=== PATIENT | female | born 1980 | race Caucasian/White ===

== ENCOUNTER 2022-08-20 17:24 | Emergency (ER) | payer OTHER, SELFPAY ==
[2022-08-20 18:08] VITALS: BP 118/89; PULSE 61; RESP 16; TEMP 37.4; O2SAT 100
--- NOTE | 2022-08-20 18:36 | ED.GENADULT ---
HPI - General Adult General Chief complaint: Wound/Laceration Stated complaint: Thumb Injury Time Seen by Provider: 08/20/22 18:36 Source: patient, RN notes reviewed and old records reviewed Mode of arrival: ambulatory Limitations: no limitations History of Present Illness HPI narrative: 42-year-old female presents to the [facility] with an infection around the left thumbnail. States that she got a sukhdev hook caught under the nail several days ago. Noticed that it got infected with an abscess Tried draining it herself. Now warm, swollen, tender to touch. Related Data Allergies Allergy/AdvReac Type Severity Reaction Status Date / Time No Known Allergies Allergy Mild Unverified 08/20/22 17:58 Review of Systems Review of Systems: All systems reviewed & are unremarkable except as noted in HPI and below Constitutional: Constitutional: Reports no additional constitutional complaints Eyes: Eyes: Reports no additional eye complaints ENT: Reports system reviewed and no additional complaints, except as documented Cardiovascular: Cardiovascular: Reports no additional cardiovascular complaints, Denies chest pain and Denies dyspnea Respiratory: Respiratory: Reports no additional respiratory complaints, Denies chest congestion, Denies cough and Denies dyspnea Gastrointestinal: Gastrointestinal: Reports no additional gastrointestinal complaints, Denies abdominal pain, Denies nausea and Denies vomiting Musculoskeletal: Musculoskeletal: Reports no additional musculoskeletal complaints Integumentary/Breasts: Skin/Breast: Reports as per HPI Neurologic: Reports system reviewed and no additional complaints, except as documented Psychiatric: Psychiatric: Reports no additional psychiatric complaints Allergic/Immunologic: Allergic/Immunologic: Reports no additional allergic/immunologic complaints PMFSH Comments At the time of my signature, I reviewed and agree with the nursing past medical, surgical, social, and family history. There is no relevant family history pertinent to the patient complaint. Exam Const: General: cooperative, healthy appearing, comfortable, no acute distress, well developed, alert and well nourished Nutritional Appearance: well nourished Orientation/consciousness: patient oriented x3 Limitations: no limitations HENMT: Head: normal to inspection Ears: hearing grossly normal bilaterally and external ears normal Face/Nose/Sinus: Normal external nose present, Normal nares present, Normal nasal mucous membranes and turbinates present and normal facial exam Face and sinus: normal facial exam Mouth: Yes lip normal and Yes moist mucous membranes Eyes: General: appearance normal, both eyes and all related structures Alignment and Position: alignment normal Periorbital: periorbital findings normal Pupils: Equal, round and reactive pupils present EOM: EOMs intact bilaterally Neck: Neck: normal visual inspection, full ROM, no lymphadenopathy and no meningeal signs Chest: Chest palpation & inspection: normal inspection of the chest Resp: Effort & Inspection: normal respiratory effort and able to speak in complete sentences Auscultation: clear to auscultation bilaterally, no crackles, no rales, no rhonchi and no wheezes Cardio: Rate: regular rate Rhythm: regular rhythm Back/Spine/Pelvis: Cervical Spine: cervical ROM normal Thoracic/Lumbar Spine: No thoracic spinal tenderness Skin: General skin exam: normal color and no rashes or lesions noted Rashes: no rashes Wounds: no wounds Other: Base of left thumb nail, red, and tried discharge. Warm to touch. No fluctuance Neuro: General: patient oriented x3, gait normal, tone normal, moves all extremities and no meningeal signs Cranial nerves: Yes Equal, round and reactive pupils present Cognition (Neuro): normal cognition Speech: normal speech Gait exam (Neuro): Normal gait present Extrem: General: normal to inspection, full ROM, capillary refill normal and
== END 2022-08-20 18:46 | disposition home or self-care (01) ==
PROVIDERS: Emergency Provider Nurse Practitioner
DX: L03.012 Cellulitis of left finger (principal)
CPT/HCPCS: 99213; G0463

== ENCOUNTER 2024-08-23 17:15 | Emergency (ER) | payer OTHER, SELFPAY ==
[2024-08-23 17:29] VITALS: BP 97/54; PULSE 62; RESP 16; TEMP 36.6; O2SAT 99
--- NOTE | 2024-08-23 18:20 | ED_ITS ---
HPI - Extremity Injury (Lower) General Chief Complaint: Extremity Injury, Lower Stated Complaint: stepped on nail Time Seen by Provider: 08/23/24 18:10 Source: patient and RN notes reviewed Mode of arrival: ambulatory Limitations: no limitations History of Present Illness HPI Narrative: 44-year-old female presents [facility] complaining of injury to her right foot. Patient stated on Friday while she was m[place] the grass in the [place] she stepped on a fallen fence posts with a nail sticking out of it that puncture through her crocs and punctured the plantar surface of her right foot. Patient was able to remove the nail completely and the nail was intact after removal. The patient has a small puncture wound to the right plantar surface of her right foot proximal to in between her great toe and 2nd toe. Patient feels mild discomfort while ambulating in bearing weight on her right foot. Patient denies any swelling, discharge, redness, deformity, or any other injuries. Patient's tetanus shot is not up-to-date patient immediately washed the wound after she injured it. Related Data Allergies Allergy/AdvReac Type Severity Reaction Status Date / Time No Known Allergies Allergy Mild Unverified 08/23/24 17:43 Review of Systems Review of Systems: CONSTITUTIONAL: Denies fever, chills, or sweats. EYES: Denies visual changes, redness, or discharge. ENT: Denies rhinorrhea, congestion, sore throat, trismus, or otalgia. CARDIOVASCULAR: Denies chest pain, palpitations, or edema. RESPIRATORY: Denies cough or dyspnea. GASTROINTESTINAL: Denies abdominal pain, nausea, vomiting, or diarrhea. GENITOURINARY: Denies dysuria or hematuria. SKIN: Denies rash or itching. Positive for wound MUSCULOSKELETAL: Denies back pain, joint pain, or myalgia. NEUROLOGIC: Denies headache, numbness, or weakness. PSYCHIATRIC: Denies anxiety or depression. All other systems reviewed are negative, except as documented in HPI. PMFSH Comments At the time of my signature, I reviewed and agree with the nursing past medical, surgical, social, and family history. There is no relevant family history pertinent to the patient complaint. Exam Narrative: GENERAL: This is a well-nourished, well-developed adult, in no apparent distress. They are non ill-appearing, nontoxic appearing. HEAD: normocephalic, atraumatic. EYES: Sclera clear/white. Conjunctiva normal. Vision is grossly intact. Extraocular movements intact EARS: External ears normal, Hearing grossly intact. NOSE: External nose normal THROAT: Mucous membranes moist, NECK: Normal range of motion CARDIOVASCULAR: Regular rate and rhythm RESPIRATORY: Respiratory rate normal, respiratory effort nonlabored, no respiratory distress SKIN: Right foot: Small puncture wound present to the plantar surface of the right foot proximal in between the great toe and 2nd toe. Area is less than approximately 0.5 cm in diameter. No obvious swelling, drainage, redness, discharge. NEURO: awake, alert, and oriented to person, place and time. There were no obvious focal neurologic abnormalities. EXTREMITIES: No joint tenderness, effusion, or edema noted. Right foot: No obvious deformity, injury, swelling, contusion, redness. See skin section for wound description. Normal dorsiflexion plantar flexion right foot. Normal range of motion to right foot. Pedal pulse 2 +and palpable. Capillary refill less than 2 seconds. Normal sensation. Neurovascular status intact distal to injury. Patient is able to wiggle her toes. BACK: Nontender without deformity. Course Course Emergency Course: Portions of this record may have been created with voice recognition software Level of Care: Express Care Visit Vital Signs Vital signs: Vital Signs Temperature 97.9 F 08/23/24 17:29 Pulse Rate 62 08/23/24 17:29 Respiratory Rate 16 08/23/24 17:29 Blood Pressure 97/54 L 08/23/24 17:29 Pulse Oximetry 99 08/23/24 17:29 Oxygen Delivery Room Air 08/23/24 17:29 Temperature 97.9 F 08/23/24 17:29 Pulse Rate 62 08/23/24 17:29 Respiratory Rate 16 08/23/24 17:29 Blood Pressure 97/54 L 08/23/24 17:29 Pulse Oximetry 99 08/23/24 17:29 Oxygen Delivery Room Air 08/23/24 17:29 Reviewed MDM - Extremity Injury (Lower) MDM Narrative Medical decision making narrative: Patient has a small puncture wound to right foot. Puncture wound appears close. No obvious deformity or bony tenderness to the area. Low suspicion for fracture, no x-rays indicated.. No suspicion for retained foreign body, patient stated nails fully intact when she removed it. No signs of infection. Given location of patient's wound will go ahead and treat with antibiotics for infection prevention. Will treat with cephalexin. Patient's tetanus was upda aníbal today. Differential Diagnosis Differential diagnosis: Likely puncture wound of foot and other (Laceration, abrasion) Critical Care Time Critical Care Time Critical Care Time: No Discharge Plan Discharge Clinical Impression: Puncture wound of foot Qualifiers: Encounter type: initial encounter Laterality: right Qualified Code(s): S91.331A - Puncture wound without foreign body, right foot, initial encounter Patient Disposition: Home Condition: Stable Instructions: Antibiotic Form, Puncture Wound (DC) Additional Instructions: Take the antibiotics as directed. Your tetanus was updated today. Please wash the affected wound at least twice a day with mild soap and water. Do not soak the wound. Avoid dirty water such as lakes, lu, cracks, pools, hot tubs, or baths tubs until your wound has completely healed. If you notice increased redness or swelling, discharge, fevers or any other concerns please go to the ER immediately. Patient Language: Hungarian Prescriptions: New cephalexin 500 mg capsule 500 mg PO Q6H 7 Days Qty: 28 0RF Follow-up/Referrals: Erich Ceballos MD [Primary Care Provider] - Time of Disposition: 18:19
[2024-08-23] MEDS: TETANUS,DIPHTHERIA,AC PERTUSSIS ADULT (0.5 ML) BOOSTRIX IM (18:27)
== END 2024-08-23 18:45 | disposition home or self-care (01) ==
PROVIDERS: PCP Emergency Medicine
DX: S91.331A Puncture wound without foreign body, right foot, initial encounter (principal); W45.0XXA Nail entering through skin, initial encounter; Z23 Encounter for immunization
CPT/HCPCS: 90471; 90715; 99213; G0463